=== PATIENT | female | born 1995 | race Caucasian/White ===

== ENCOUNTER 2017-06-10 13:25 | Emergency (ER) | payer OTHER ==
[~2017-06-10] VITALS: Ht 165.1 cm; Wt 56.0 kg
[2017-06-10 13:32] VITALS: TEMP 36.8; Ht 165.1 cm; Wt 56.0 kg
[2017-06-10] MEDS ORDERED: SODIUM CHLORIDE 0.9% 1000ML 1,000 ML IV STA (14:25)
[2017-06-10] MEDS ORDERED: BCPILLS PO (14:43)
[2017-06-10 14:51] LABS: BASO % 0.2 %; BASO ABS # 0.01 K/uL (0-0.2); COMPLETE YES; EOS % 1.3 %; HEMATOCRIT 43.9 % (37-47); IG% 0.2 %; LYMPH % 17.8 %; LYMPH ABS # 0.93 K/uL (1.2-3.4); MEAN CORPUSCULAR HEMOGLOBIN 29.9 pg (25-34); MEAN CORPUSCULAR HGB CONC 33.9 g/dl (32-36); MEAN PLATELET VOLUME 9.5 fL (7.4-10.4); MONO % 9.4 %; NEUT % 71.1 %; PLATELET COUNT 229 K/uL (130-400); RED BLOOD COUNT 4.99 M/uL (4.2-5.4); WHITE BLOOD COUNT 5.22 K/uL (4.8-10.8)
[2017-06-10 15:07] LABS: CALCIUM 9.6 mg/dl (8.5-10.1); CREATININE 0.92 mg/dl (0.60-1.20); POTASSIUM 3.5 mmol/L (3.5-5.1)
[2017-06-10 15:18] LABS: THYROID STIMULATING HORMONE 1.25 uIu/ml (0.300-4.500)
--- NOTE | 2017-06-10 16:47 | EMERGENCY ROOM VISIT NOTE ---
ED Visit Note First contact with patient: 13:52 CHIEF COMPLAINT: Near syncopal episode just prior to arrival HISTORY OF PRESENT ILLNESS: Patient is an otherwise healthy 22-year-old white female who is brought to the emergency department by [facility] ambulance for evaluation of a near syncopal episode. Patient reports that she has been feeling well was in her usual state of health today. She was at work at a sandwich shop. She was very busy, and she had not had anything to eat or anything significant to drink throughout the day at. She states that she was standing, when she began to feel some blurry vision. She tried drinking some ice tea, but when this did not help she went to the bathroom. While in the bathroom, she states that she began to feel television and muffled hearing, and had to sit down. She tried to get up, but states that she was unable to stand or walk, then sat back down. She did not completely lose consciousness. She was able to get herself out of the bathroom, where she sat down at a table. She was witnessed by coworkers to be pale, shaky and sweaty. They gave her Gatorade and applied ice to her head, and EMS was summoned. The incident occurred about 90 minutes ago. Patient reports that she began to feel better in the ambulance, and at the present time still feels is very slight headache and cold. She denies a prior history of syncope. There was no seizure-like activity. The patient denies any chest pain, palpitations or shortness of breath. She has not been on recently. She reports that she is presently menstruating, is on an oral contraceptive and states that she was due for her menses. She is sexually active. She denies any heavy bleeding, painful cramping or dyspareunia. No vaginal discharge. She does note some burning with urination. This is been going on for about a week. She denies any drug use, no recent alcohol. REVIEW OF SYSTEMS: Review of systems as per HPI. All other systems reviewed were negative. 10 systems reviewed. PMH: Patient is otherwise healthy without chronic medical problems or surgical procedures. SOCIAL HISTORY: Is a college in from [place] he lives in an apartment with roommates. She does not smoke, drinks alcohol socially. PHYSICAL EXAM: Vital Signs: Reviewed Nurse's notes. CONSTITUTIONAL: Patient is a pleasant, well-appearing 22-year-old white female who is awake and alert and in no acute distress. HEENT: Normocephalic, atraumatic. Pupils equal, round, reactive to light and accommodation. EOMs intact without nystagmus. Sclera are anicteric. Tympanic membranes intact, with normal landmarks. External canals are clear. Oral and nasopharynx are clear. Mucous membranes are moist. NECK: Supple, nontender, no lymphadenopathy. Full range of motion. No nuchal rigidity. HEART: Tachycardic rate and rhythm, with normal S1 and S2, no murmur or gallop or rub is heard. LUNGS: Breath sounds equal and clear to auscultation without wheezes, rales, or rhonchi heard. ABDOMEN: Soft, non-tender. Bowel sounds normo-active. SKIN: No lesions or rash, normal skin turgor. EXTREMITIES: No cyanosis, edema, joint tenderness or swelling. No deformity. NEUROLOGICAL: Alert and oriented x4. Cranial nerves 2 through 12, sensation and strength grossly intact. Gait is normal. Patient is able to toe, heel and tandem walk without difficulty. Negative Romberg, and pronator drift. Finger to nose, finger to finger and rapid alternating movements are intact. Immediate , recent and remote memories are intact. Concentration is normal. EMERGENCY DEPARTMENT COURSE: Patient was seen and evaluated as above. She was noted to be slightly tachycardic, and was orthostatic with a vitals. Tachycardia improved with IV hydration. BSG was 92. H&H is normal. No electrolyte or renal function abnormalities were noted. TSH is indicative of a euthyroid state. Urine dip noted 250 of blood, likely contamination from her menses, and leuk esterase. Given her reported dysuria, urine culture was ordered and is pending. Urine test was negative. EKG: Sinus tachycardia at 109 beats per minute. No ectopy or acute ischemic changes. No old EKGs available for review. The patient was given oral fluids in the emergency department which she tolerated, she reported that she felt improved. All laboratory and diagnostic imaging studies were reviewed with her. She was encouraged to rest, eat small frequent meals and drink plenty of fluids. She was advised to follow-up with [facility] for further care and management if her symptoms are not improving. She was discharged home in the care of a friend in good condition. MEDICAL DECISION MAKING: Differential includes acute coronary syndrome, arrhythmia, seizure, orthostasis, dehydration, electrolyte abnormalities, anemia , hypoglycemia, POTS, among others. Medication reconciliation: I attest that I have personally reviewed the patient' s current medication list. Blood pressure screening : Patient was found to have normal blood pressure on screening and does not require follow-up. Current/Historical Medications Scheduled Control Pills ( Control Pills), 1 TAB PO DAILY Allergies Coded Allergies: No Known Allergies (Unverified , 06/10/17) Vital Signs Date Time Temp Pulse Resp B/P (MAP) Pulse Ox O2 Delivery O2 Flow Rate FiO2 06/10/17 16:54 102 18 117/75 99 06/10/17 15:10 109 06/10/17 15:07 109 114/84 111 115/87 130 119/78 06/10/17 13:32 36.8 112 16 107/75 100 Room Air Laboratory Results 06/10/17 14:30 Red Blood Count 4.99, Mean Corpuscular Volume 88.0, Mean Corpuscular Hemoglobin 29.9, Mean Corpuscular Hemoglobin Concent 33.9, Mean Platelet Volume 9.5, Neutrophils (%) (Auto) 71.1, Lymphocytes (%) (Auto) 17.8, Monocytes (%) (Auto) 9.4, Eosinophils (%) (Auto) 1.3, Basophils (%) (Auto) 0.2, Neutrophils # (Auto) 3.71, Lymphocytes # (Auto) 0.93, Monocytes # (Auto) 0.49, Eosinophils # (Auto) 0.07, Basophils # (Auto) 0.01 06/10/17 14:30 Test 06/10/17 14:30 06/10/17 14:33 White Blood Count 5.22 K/uL (4.8-10.8) Red Blood Count 4.99 M/uL (4.2-5.4) Hemoglobin 14.9 g/dL (12.0-16.0) Hematocrit 43.9 % (37-47) Mean Corpuscular Volume 88.0 fL (80-100) Mean Corpuscular Hemoglobin 29.9 pg (25-34) Mean Corpuscular Hemoglobin Concent 33.9 g/dl (32-36) Platelet Count 229 K/uL (130-400) Mean Platelet Volume 9.5 fL (7.4-10.4) Neutrophils (%) (Auto) 71.1 % Lymphocytes (%) (Auto) 17.8 % Monocytes (%) (Auto) 9.4 % Eosinophils (%) (Auto) 1.3 % Basophils (%) (Auto) 0.2 % Neutrophils # (Auto) 3.71 K/uL (1.4-6.5) Lymphocytes # (Auto) 0.93 K/uL (1.2-3.4) Monocytes # (Auto) 0.49 K/uL (0.11-0.59) Eosinophils # (Auto) 0.07 K/uL (0-0.5) Basophils # (Auto) 0.01 K/uL (0-0.2) RDW Standard Deviation 41.2 fL (36.4-46.3) RDW Coefficient of Variation 12.8 % (11.5-14.5) Immature Granulocyte % (Auto) 0.2 % Immature Granulocyte # (Auto) 0.01 K/uL (0.00-0.02) Urine Test NEG (NEG) Anion Gap 8.0 mmol/L (3-11) Est Creatinine Clear Calc Drug Dose 85.5 ml/min Estimated GFR () 103.2 Estimated GFR (Non- 89.0 BUN/Creatinine Ratio 8.0 (10-20) Calcium Level 9.6 mg/dl (8.5-10.1) Thyroid Stimulating Hormone (TSH) 1.250 uIu/ml (0.300-4.500) Bedside Glucose 92 mg/dl (70-90) Medications Administered Medications (Trade) Dose Ordered Sig/Reji Route Start Time Stop Time Status Last Admin Dose Admin Sodium Chloride 1,000 ml @ 999 mls/hr Q1H1M STAT IV 06/10/17 14:25 06/10/17 15:25 DC 06/10/17 15:12 999 MLS/HR Departure Information Impression Primary Impression: Near syncope Referrals No Doctor, Assigned (PCP) Patient Instructions [facility] Additional Instructions Rest and drink plenty of fluids as tolerated. Continue current medications. Diet as tolerated. Return to the ER immediately for passing out, headache, rapid heart rates, chest pains, difficulty breathing, black or bloody stools, slurred speech, numbness, weakness, visual changes, worsening of your condition, or as needed. Follow up with your primary physician in 2-3 days for a recheck of your current condition.
[2017-06-10 16:54] VITALS: BP 117/75; PULSE 102; O2SAT 99
== END 2017-06-10 16:54 | disposition home or self-care (01) ==
LOC: C.EDD 13:28
DX: R55 Syncope and collapse (principal)